=== PATIENT | female | born 1980 | race Caucasian/White ===

== ENCOUNTER 2019-01-31 17:41 | Emergency (ER) | payer OTHER ==
[~2019-01-31] VITALS: Ht 160 cm; Wt 75.0 kg
[2019-01-31 19:39] VITALS: BP 98/71
== END 2019-01-31 20:32 | disposition home or self-care (01) ==
LOC: ED 18:35
DX: R55 Syncope and collapse (principal); R51 Headache; M25.572 Pain in left ankle and joints of left foot; F17.200 Nicotine dependence, unspecified, uncomplicated
CPT/HCPCS: 36415; 71045; 80053; 81003; 83605; 83690; 83880; 84484; 84703; 85025; 85379; 93005; 99284; J7030; 82962

== ENCOUNTER 2020-08-23 20:37 | Emergency (ER) | payer MEDICAID ==
[~2020-08-23] VITALS: Ht 160 cm; Wt 88.0 kg
[2020-08-23 20:40] VITALS: BP 136/96
--- NOTE | 2020-08-23 21:18 | NUR ---
pt in bed . stated she came in for a work note.
--- NOTE | 2020-08-23 21:37 | NUR ---
pt walked out self with steady gait. rx given if s&s worsen return to er
== END 2020-08-23 21:40 | disposition home or self-care (01) ==
LOC: ED 21:26
DX: B34.9 Viral infection, unspecified (principal); J00 Acute nasopharyngitis [common cold]; R51.9 Headache, unspecified; M79.10 Myalgia, unspecified site
CPT/HCPCS: 99283

== ENCOUNTER 2020-09-11 18:23 | Emergency (ER) | payer MEDICAID ==
[~2020-09-11] VITALS: Ht 160 cm; Wt 89.4 kg
[2020-09-11] MEDS ORDERED: DEXAMETHASONE 4 MG TABLET ONE (19:21)
[2020-09-11 19:25] VITALS: BP 120/82
[2020-09-11] MEDS ORDERED: DEXAMETHASONE 4 MG TABLET PO ONE (19:30)
== END 2020-09-11 20:56 | disposition home or self-care (01) ==
LOC: ED 19:16
DX: J02.8 Acute pharyngitis due to other specified organisms (principal); B97.89 Other viral agents as the cause of diseases classified elsewhere
CPT/HCPCS: 87081; 87880; 99283